=== PATIENT | male | born 1960 | race Caucasian/White ===

== ENCOUNTER → 2019-03-08 | Emergency (ER) | payer SELFPAY, MEDICAID ==
[2019-03-08] MEDS: TETRACAINE 0.5% 4 ML OPH LEFT EYE (16:24)
[2019-03-08] MEDS: FLUORESCEIN STRIP LEFT EYE (16:24)
== END | disposition home or self-care (01) ==
LOC: FTE 15:07
DX: S05.02XA Injury of conjunctiva and corneal abrasion without foreign body, left eye, initial encounter (principal); I10 Essential (primary) hypertension; X58.XXXA Exposure to other specified factors, initial encounter; Y92.9 Unspecified place or not applicable
CPT/HCPCS: 99283